=== PATIENT | female | born 1965 | race Caucasian/White ===

== ENCOUNTER 2024-04-04 10:51 | Emergency (ER) | payer OTHER ==
[~2024-04-04] VITALS: Ht 165.1 cm; Wt 68.0 kg
[2024-04-04] MEDS ORDERED: methylPREDNISolone sod succ 125 MG VIAL IM ONE (12:40)
[2024-04-04 12:57] LABS: BASO % 0.2 % (0.0-1.0); EOS # 0.8 10*3/uL (0.0-0.4); EOS % 8.5 % (1.0-4.0); HEMATOCRIT 46.2 % (37.0-47.0); LYMPH % 10.3 % (27.0-41.0); MEAN CELL VOLUME 104.5 fl (81.0-99.0); MEAN CORPUSCULAR HGB 33.7 pg (27.0-31.0); MEAN CORPUSCULAR HGB CONC 32.3 g/dl (33.0-37.0); MEAN PLATELET VOLUME 9.6 fl (9.6-12.3); MONO # 0.8 10*3/uL (0.1-1.0); MONO % 8.8 % (3.0-9.0); NEUT # 6.7 10*3/uL (2.3-7.9); NEUT % 71.8 % (47.0-73.0); PLATELET COUNT AUTOMATED 430 10*3/uL (130-400); RED BLOOD COUNT 4.42 10*6/uL (4.10-5.10); RED CELL DISTRI WIDTH 14.4 % (0-14.5); WHITE BLOOD COUNT 9.3 10*3/uL (4.8-10.8)
[2024-04-04 13:20] LABS: BUN 17 mg/dl (9-23); CHLORIDE 104 mmol/L (98-107); POTASSIUM 4.1 mmol/L (3.4-5.1)
[2024-04-04] MEDS ORDERED: Bacitracin Zinc 14 GM TUBE T ONE (13:40)
[2024-04-04] MEDS ORDERED: SEPTDS PO (13:41)
[2024-04-04] MEDS ORDERED: CEPHALEXIN500 M1 PO (13:41)
[2024-04-04] MEDS ORDERED: PREDNISONE10 MG PO (13:41)
== END 2024-04-04 14:17 | disposition home or self-care (01) ==
LOC: ED 10:51
PROVIDERS: Physician Assistant Medical
DX: T23.202A Burn of second degree of left hand, unspecified site, initial encounter (principal); L25.9 Unspecified contact dermatitis, unspecified cause; N61.0 Mastitis without abscess; L03.311 Cellulitis of abdominal wall; X08.8XXA Exposure to other specified smoke, fire and flames, initial encounter; Y93.89 Activity, other specified; Y92.89 Other specified places as the place of occurrence of the external cause; Y99.8 Other external cause status

== ENCOUNTER 2024-05-01 09:41 | Emergency (ER) | payer OTHER ==
[~2024-05-01] VITALS: Ht 165.1 cm; Wt 68.0 kg
[~2024-05-01 09:41] MED LIST: CEPHALEXIN500 M1 PO; PREDNISONE10 MG PO; SEPTDS PO
[2024-05-01] MEDS ORDERED: TRAMADOL HCL50 MG PO (11:56)
== END 2024-05-01 11:54 | disposition home or self-care (01) ==
LOC: ED 09:41
DX: S82.55XA Nondisplaced fracture of medial malleolus of left tibia, initial encounter for closed fracture (principal); S82.65XA Nondisplaced fracture of lateral malleolus of left fibula, initial encounter for closed fracture; W10.9XXA Fall (on) (from) unspecified stairs and steps, initial encounter; Y93.89 Activity, other specified; Y92.89 Other specified places as the place of occurrence of the external cause; Y99.8 Other external cause status